=== PATIENT | female | born 1995 | race Caucasian/White ===

== ENCOUNTER → 2024-04-08 08:07 | Outpatient (REF) | payer OTHER, SELFPAY | LOC: HWRAD 08:07 | PROVIDERS: ATTENDING PHYSICIAN Physician Assistant Medical | DX: R10.11 Right upper quadrant pain (principal); R10.30 Lower abdominal pain, unspecified; R19.7 Diarrhea, unspecified; R35.0 Frequency of micturition | CPT/HCPCS: 74177; Q9967 ==

== ENCOUNTER → 2024-05-07 12:03 | Outpatient (REF) | payer OTHER, SELFPAY | LOC: RAD 12:03 | PROVIDERS: ATTENDING PHYSICIAN Physician Assistant Medical | DX: R10.30 Lower abdominal pain, unspecified (principal); R93.5 Abnormal findings on diagnostic imaging of other abdominal regions, including retroperitoneum | CPT/HCPCS: 72193; Q9967 ==